=== PATIENT | female | born 1950 | race Caucasian/White ===

== ENCOUNTER 2017-10-06 01:50 | Inpatient (IN) | payer OTHER ==
[2017-10-06 02:51] LABS: MANUAL DIFF REQUIRED? YES
[2017-10-06 02:53] LABS: HEMATOCRIT 53.6 % (41.0-60); HEMOGLOBIN 17.6 gm/dL (12-16); MEAN CORPUSCULAR HEMOGLOBIN 29.6 pg (27.0-31.0); MEAN CORPUSCULAR HGB CONC 32.8 pg (28.0-36.0); MEAN PLATELET VOLUME 14.3 fl; PLATELET COUNT 160 Th/cmm (150-400); RED BLOOD COUNT 5.95 Mil/cmm (3.80-5.10); RED CELL DISTRIBUTION WIDTH 13.4 % (11.5-20.0)
[2017-10-06 02:56] LABS: WHITE BLOOD COUNT 17.2 Th/cmm (4.8-10.8)
--- NOTE | 2017-10-06 03:07 | ED Physician Chart ---
ED Chief Complaint/HPI - Patient Information Date Seen:: 10/06/17 Time Seen:: 03:02 Chief Complaint:: Difficulty breathing History of Present Illness:: 66 yo female with history of frontal lobe dementia, became bed bound for 1 month , had altered mental status for 1 week. She had difficulty swallowing since one day ago. A few hours prior to ER visit, she had difficulty breathing. Her called 911 and patient was brought in by ambulance. Allergies:: Allergies Allergy/AdvReac Type Severity Reaction Status Date / Time No Known Allergies Allergy Verified 10/06/17 02:03 Vitals:: Vital Signs - 8 hr 10/06/17 10/06/17 01:50 02:30 Temp 97.6 F HR 127 130 RR 37 38 BP 149/48 153/85 O2 Sat % 94 98 ED Review of Systems - Review of Systems General/Constitutional: No fever, Weakness Skin: No rash Head: No headache Eyes: No pain, No diplopia ENT: No nasal drainage, Other (difficulty swallowing) Neck: No neck pain Cardio Vascular: No chest pain Pulmonary: SOB GI: Nausea Musculoskeletal: No bone or joint pain Psychiatric: Prior psych history (psychosis) Neurological: Confusion ED Past Medical History - Past Medical History Past Medical History: Dementia, Other (pressure ulcers, urinary incontinent, osteoporosis) Social History: Non Smoker, No Alcohol, No Drug Use Psychiatricy History: Dementia, Other (psychosis) Family Medical History - Family Member Mother History Unknown: Yes ED Physical Exam - Physical Examination Other Gen/Cons comments:: obtunded Head: Atraumatic Eyes: PERRL Skin: No ecchymosis Other Skin comments:: Sacral decubitus ulcers ENMT: Nasal exam nl Neck: No nuchal rigidity Other Respiratory comments:: B/L wheezing Cardio Vascular: RRR, No murmur, gallop, rubs, NL S1 S2 GI: No tenderness/rebounding/guarding Extremities: normal strength in all extremities Neuro/Psych: No focal deficits ED Labs/Radiology/EKG Results - Lab Results Results: Laboratory Tests 10/06/17 02:42 WBC 17.2 H RBC 5.95 H Hgb 17.6 Hct 53.6 MCV 90.0 MCH 29.6 MCHC Differential 32.8 RDW 13.4 Plt Count 160 MPV 14.3 - Radiology Results Results: CXR: no consolidation ED Assessment - Assessment General Assessment: Acute renal failure Hypotension Dehydration Leukocytosis UTI Dementia with psychosis Assessment/Comments:: CBC, CMP, UA EKG, CXR ABG NS 1L IV bolus Rocephin Tylenol Admit to ICU for further management ED Septic Shock - . Is Septic Shock (SBP<90, OR Lactate>4 mmol\L) present?: Yes - <6hrs of presentation: Vital Signs: Vital Signs - 8 hr 10/06/17 10/06/17 01:50 02:30 Temp 97.6 F HR 127 130 RR 37 38 BP 149/48 153/85 O2 Sat % 94 98 Assessment of Lungs: Rhonchi Assessment of Heart: RRR, No Murmur EKG Interpretation: Tachy Capillary refill evaluation: Capillary refill > 2 secs Skin Exam: Warm, Good Turgur - Peripheral pulse evaluation Radial Peripheral pulse evaluation-quality: +1 (weak/thready) - Time of Reassessment Time of Reassessment: 03:50 ED Reassessment (Disposition) - Reassessment Reassessment Condition:: Unchanged - Patient Disposition Discharge/Transfer:: Acute Care w/in this hosp Admitting Medical Physician:: Sherif White ED Discharge Plan - Patient Disposition Admit/Discharge/Transfer: Acute Care w/in this hosp Condition at Disposition:
[2017-10-06 03:13] LABS: ALB/GLOB RATIO 0.8 (1.0-1.8); ALBUMIN 2.8 gm/dL (3.7-5.3); BILIRUBIN,TOTAL 1.6 mg/dL (0.3-1.0); CALCIUM SERUM 7.9 mg/dL (8.6-10.3); CARBON DIOXIDE 15.6 mEq/L (21.0-31.0); TOTAL PROTEIN,SERUM 6.2 gm/dL (6.0-8.3)
[2017-10-06 03:29] LABS: LYMPHOCYTE 6 % (20-50); MONOCYTE 1 % (2-10); NEUTROPHILS 93 % (40-80); PLATELET ESTIMATE ADEQUATE (NORMAL); TOTAL CELLS COUNTED 100
[2017-10-06 03:33] LABS: ANION GAP 25.4 (7.0-16.0); GFR AFRICAN-AMERICAN 14.1 ml/min (>90); GFR NON AFRICAN-AMERICAN 11.6 ml/min
[2017-10-06 03:35] LABS: CREATININE - SERUM 4.1 mg/dL (0.6-1.2)
[2017-10-06] MEDS ORDERED: cefTRIAXone 1 GM in Sodium Chloride 0.9% 50 ML IV ONE (03:35)
[2017-10-06] MEDS ORDERED: Sodium Chloride 0.9% 1,000 ML IV ONE (03:58)
[2017-10-06 04:13] LABS: URINE MICROSCOPIC INDICATED? YES; URINE SOURCE CATH
[2017-10-06 04:16] LABS: URINE BILIRUBIN NEGATIVE (NEGATIVE); URINE BLOOD TRACE (NEGATIVE); URINE GLUCOSE (UA) NEGATIVE (NEGATIVE); URINE KETONE NEGATIVE (NEGATIVE); URINE LEUKOCYTE ESTERASE TRACE (NEGATIVE); URINE NITRATE NEGATIVE (NEGATIVE); URINE PH 5.5 (4.6 - 8.0); URINE PROTEIN NEGATIVE (NEGATIVE); URINE UROBILINOGEN 0.2 E.U./dL (0.2 - 1.0)
[2017-10-06 04:29] LABS: URINE CLARITY HAZY (CLEAR); URINE COLOR YELLOW
[2017-10-06 04:31] LABS: URINE RBC 0-2 /hpf (0-5)
[2017-10-06 04:32] LABS: URINE BACTERIA FEW /hpf (NONE SEEN); URINE EPITHELIAL CELLS MODERATE /lpf (FEW)
[2017-10-06 04:37] LABS: AMPHETAMINE URINE NEGATIVE (NEGATIVE); BARBITURATES URINE NEGATIVE (NEGATIVE); PHENCYCLIDINE (PCP) URINE NEGATIVE (NEGATIVE)
[2017-10-06 04:38] LABS: BENZODIAZEPINES QUAL URINE POSITIVE (NEGATIVE); CANNABINOID THC NEGATIVE (NEGATIVE); COCAINE METABOLITE QUAL URINE NEGATIVE (NEGATIVE); METHADONE URINE NEGATIVE (NEGATIVE); METHAMPHETAMINES QUAL URINE NEGATIVE (NEGATIVE); OPIATES (MORPHINE) QUAL. URINE NEGATIVE (NEGATIVE); TRICYCLICS (TCA) QUAL. URINE NEGATIVE (NEGATIVE)
[2017-10-06] MEDS ORDERED: Sodium Chloride 0.9% 250 ML IV ONE (05:40)
[2017-10-06] MEDS ORDERED: D5-0.45NS 1,000 ML IV SCH (05:45)
--- NOTE | 2017-10-06 09:13 | Diagnostic Imaging Report ---
Portable chest x-ray History: Shortness of breath Allowing for portable technique the heart size is normal. No focal pulmonary parenchymal processes. No hilar or mediastinal abnormalities. Impression: No acute abnormalities.
--- NOTE | 2017-10-06 09:27 | History and Physical ---
History of Present Illness - HPI Chief Complaint: breathing problems. HPI: Patient has dementia x 3 years that has progress rapidly, bed bound x few months not eating or drinking x few days. At ER was found leukocytosis, Hypernatremia, AKF, and elevated troponins. 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 GI: Report: No Pertinent Hx Psych: Report: Psychosis Musculoskeletal: Report: Weakness Rheumatologic: Report: No pertinent Hx Infectious Disease: Report: No Pertinent Hx Renal/: Report: No Pertinent Hx Endocrine: Report: No Pertinent Hx Dermatology: Report: No Pertinent Hx - Past Surgical History Past Surgical History: No pertinent Hx Family Medical History - Family Member Mother History Unknown: Yes Social History Smoke: No Alcohol: None Drugs: None Lives: With Family Domestic Violence: Negative - Medications Home Medications: Home Medication Medication Instructions Recorded Type Divalproex Sodium [Depakote] 250 mg PO BID 10/06/17 History Lorazepam [Ativan] 0.5 mg PO DAILY PRN 10/06/17 History OLANZapine [ZyPREXA] 10 mg PO DAILY PRN 10/06/17 History Temazepam [Restoril*] 7.5 mg PO HS PRN 10/06/17 History - Allergies Allergies/Adverse Reactions: Allergies Allergy/AdvReac Type Severity Reaction Status Date / Time No Known Allergies Allergy Verified 10/06/17 02:03 Review of Systems - Review of Systems Constitutional: Report: Weakness Eyes: Report: No Significant ENT: Report: No Significant Respiratory: Report: No Significant Cardiovascular: Report: No Significant Gastrointestinal: Report: No Significant Genitourinary: Report: No Significant Musculoskeletal: Report: Other (Non ambulatory) Skin: Report: No Significant Neurological: Report: Weakness, Confusion, Other (Non Verbal) Physical Exam - Physical Exam HEENT: Report: Ears Nose Throat within normal limits Neck: Report: Within normal limits Cardiovascular Systems: Report: Regular, Rate and Rhythm Respiratory: Report: Rhonchi Abdomen: Report: Non-tender to palpation Back: Report: Inspection of back is within normal limits. Extremities: Report: Non-tender to palpation. Skin: Report: Color of skin is within normal limits Neuro/Psych: Report: Other (Unconcious, responding only to pain) - Lab Results All Lab Results last 24 hours: Laboratory Results - last 24 hr 10/06/17 07:50 Whole Bld Lactic Acid 6.69 H* - Assessment Assessment: Patient is unconcious, responding only to pain. Dx: Sepsis, Hypernatremia, AKF , Elevated troponins. - Plan Plan: Patient in D5, Ceftriaxone. Consult with Nephro and Cardio requested. Case discussed with , poor prognosis.
[2017-10-06 09:30] VITALS: BP 81/57
[2017-10-06] MEDS ORDERED: cefTRIAXone 1 GM in Sodium Chloride 0.9% 50 ML IV SCH (09:30)
[2017-10-06] MEDS ORDERED: Dextrose 5% 1,000 ML IV SCH (09:30)
[2017-10-06] MEDS: Morphine Sulfate 2 mg/mL 1mL Syr IV PRN ×2 (12:01→16:07)
[2017-10-06] MEDS ORDERED: D5-0.9%NS 1,000 ML IV SCH (14:19)
[2017-10-06] MEDS ORDERED: [UNRECOGNIZED DRUG - OTHER] IV SCH (14:35)
[2017-10-06] MEDS ORDERED: SODIUM BICARBONATE IV SCH (14:35)
[2017-10-06] MEDS ORDERED: D5 IV SCH (14:35)
--- NOTE | 2017-10-06 22:25 | Consultation ---
DATE OF CONSULTATION: 10/06/2017 ATTENDING PHYSICIAN: Sherif White MD RN CLINICAL RESOURCE: Mark Marinelli M.D. REASON FOR CONSULTATION: Worsening kidney function, electrolyte imbalance and fluid management. HISTORY OF PRESENT ILLNESS: This is a 66-year-old female with past medical history of Alzheimer dementia, who was brought in because of respiratory distress. Three days prior to admission, the patient developed ticks disease. This progressed to severe dementia. Six months prior to admission, she became combative and was admitted at a local [facility] mental health unit. Her medications were adjusted and her mental status improved. Three months prior to admission, she fell 3 times. Since then, she became bed bound with worsening symptoms of dementia. Her appetite had progressively been affected. One week prior to admission, she refused to eat and drink. A few hours prior to admission, noticed the patient to be in respiratory distress. Thus, he called EMS and she was brought to the Emergency Room. Lactic acid was 8.79 with a sodium of 174. Chest x-ray showed no acute disease. White count was 7.2 with a BNP level of 86.9 and troponin 0.26. Urinalysis was suggestive of possible urinary tract infection. Her BUN/creatinine were 182/4.1. PAST MEDICAL HISTORY: 1. Alzheimer dementia. 2. Psychosis. MEDICATIONS: Currently on ceftriaxone, acetaminophen, and morphine sulfate. ALLERGIES: No known drug allergies. SOCIAL AND FAMILY HISTORY: I was not able to obtain from the patient because she is obtunded at the present time. REVIEW OF SYSTEMS: Again, I was not able to decipher directly from the patient. PHYSICAL EXAMINATION: GENERAL: The patient remains obtunded on a ventimask, mild tachypnea. HEENT: Head normocephalic, atraumatic. Eyes: Unable to assess her extraocular muscles. Pupils are equal, round, reactive to light and accommodate. Anicteric sclerae. Pale conjunctivae. Nose, midline nasal septum. Mouth, very dry mucosa and poor dentition. NECK: Supple, no adenopathy, no thyromegaly, no bruits. Trachea palpated in the midline. CHEST AND CVS: S1, S2. No rub, murmur nor gallop appreciated. Point of maximal impulse fifth intercostal space, left midclavicular line. No abdominal or femoral bruits appreciated. LUNGS: Equal expansion. No use of accessory muscles. No supraclavicular retractions, scattered rhonchi with few rales, but no wheezes appreciated. BREASTS: Symmetrical without any discharge. ABDOMEN: Scaphoid, soft. Positive for bowel sounds. No bruits either diastolic or systolic. RECTAL: Lax sphincter tone. GENITOURINARY: Normal appearing female genitalia. MUSCULOSKELETAL: No effusions present in her joints, but unable to assess her range of motion. EXTREMITIES: No evidence of any edema, cyanosis, clubbing with purplish discoloration of her toes and very cold to touch. BACK: She has skin breaks with hematomas involving the sacrococcygeal areas. NEUROLOGIC: The patient remains obtunded, so I was not able to pursue further my neuro exam. LABORATORY DATA: Labs did reveal sodium 174, potassium 5, chloride 138, bicarb 15.6, BUN 182, creatinine 4.1, calcium 7.9, bilirubin 1.6, AST 236, ALT 182, albumin 2.8. IMPRESSION: 1. Acute kidney injury likely due to acute tubular injury. 2. Shock which is due to hypovolemia as well as sepsis. 3. Severe dehydration. 4. Lactic acidosis secondary to diminished perfusion and sepsis. 5. Severe malnutrition. 6. Alzheimer dementia. 7. History of psychosis. PLAN: 1. Continue with IV fluids. 2. Start also some sodium bicarbonate. 3. Follow up urine sodium, eosinophils, and creatinine. 5. Continue antibiotics for now. 6. Comfort care only as per request by . JOB# [id number]
--- NOTE | 2017-10-06 23:02 | Consultation ---
DATE OF CONSULTATION: 10/06/[address] White. HISTORY AND PHYSICAL: This is a 66-year-old female patient who has dementia. The patient was at a custodial. The patient was brought in as patient became more lethargic and weak, in the Emergency Room, the patient was found to have hypernatremia, hypotension. The patient is admitted to ICU. Per family request, they do not want any vasopressors. The patient is given fluid challenge. PAST MEDICAL HISTORY: Osteoporosis, dementia, and possible psychosis. FAMILY HISTORY: Unremarkable. SOCIAL HISTORY: No history of smoking, alcohol abuse. ALLERGIES: None. PHYSICAL EXAMINATION: VITAL SIGNS: Blood pressure 90 systolic, pulse 100, and respiration 28. HEAD: Normocephalic. No lumps or bumps. EYES: Pupils equal, reactive to light. Fundi show AV nicking, sclerae white, conjunctivae pink. NECK: Carotid 2+. Normal upstroke. JVD flat. Thyroid not palpable. Lymph nodes not palpable. CHEST: Shows increased AP diameter. No kyphosis, scoliosis. LUNGS: Bilateral bronchovesicular breath sounds. HEART: PMI fifth intercostal space with lateral to midclavicular line. S1, S2. No S3, S4. Soft systolic murmur. ABDOMEN: Soft. Liver and spleen not palpable. No organomegaly. Bowel sounds active. NEUROLOGIC: No focal neurological deficit. EXTREMITIES: Peripheral pulses 1+. No pedal edema. CLINICAL IMPRESSION: Hypotension, acute renal failure, , osteoporosis, dementia, and psychosis. PLAN: To continue on IV fluids, IV antibiotics. The patient had episode of supraventricular tachycardia, will be controlled with fluid challenge. JOB# [id number]
--- NOTE | 2017-10-07 09:01 | Discharge Summary ---
General Discharge Summary - Discharge Summary Date of Admission: 10/06/17 Admitting Diagnosis: Sepsis, Hypernatremia, AKF, Elevated troponis, Dementia Discharge Date: 10/06/17 Discharge Diagnosis: Sepsis, Hypernatremia, AKF, Elevated Troponions, Dementia. Laboratory Findings: Laboratory Tests 10/06/17 07:50 Whole Bld Lactic Acid 6.69 H* Hospital Course: Patient was admitted to ICU but the same day. Treatment: Patient was started with IV D5,ab, Consult with ID and Cardio were done. Patient same day. Disposition: Home Medications: Home Medication Medication Instructions Recorded Type Divalproex Sodium [Depakote] 250 mg PO BID 10/06/17 History Lorazepam [Ativan] 0.5 mg PO DAILY PRN 10/06/17 History OLANZapine [ZyPREXA] 10 mg PO DAILY PRN 10/06/17 History Temazepam [Restoril*] 7.5 mg PO HS PRN 10/06/17 History Consults and Follow-Up: ESTER TORRES [Other] not on staff,PCP is [Primary Care Provider] -
== END 2017-10-06 20:25 | disposition expired | DRG 871 ==
LOC: ER 01:50 → ICU 07:00
PROVIDERS: ADMIT General Practice; ATTEND General Practice
DX: A41.9 Sepsis, unspecified organism (principal); R65.21 Severe sepsis with septic shock; E43 Unspecified severe protein-calorie malnutrition; N17.9 Acute kidney failure, unspecified; G31.09 Other frontotemporal neurocognitive disorder; E87.0 Hyperosmolality and hypernatremia; G30.9 Alzheimer's disease, unspecified; F02.80 Dementia in other diseases classified elsewhere, unspecified severity, without behavioral disturbance, psychotic disturbance, mood disturbance, and anxiety; I47.1 Supraventricular tachycardia; M81.0 Age-related osteoporosis without current pathological fracture; F29 Unspecified psychosis not due to a substance or known physiological condition; I46.9 Cardiac arrest, cause unspecified; Z66 Do not resuscitate; E86.0 Dehydration; Z74.01 Bed confinement status; Z79.899 Other long term (current) drug therapy; Z68.29 Body mass index [BMI] 29.0-29.9, adult
CPT/HCPCS: 36415-UA; 71045-TC; 80053-TC; 80307; 81001-TC; 83605; 83880-TC; 84484-TC; 85007-TC; 85027-TC; 87086-90; 90799; 93005; J0696; J2270; J7030; J7070; Z7610